=== PATIENT | male | born 1950 ===

== ENCOUNTER → 2024-03-03 17:07 | Day surgery (SDC) | payer MEDICARE, SELFPAY ==
[2024-03-03] VITALS (7 sets, daily range): BP systolic 92–143; BP diastolic 47–71; BMI 24.8
== END ==
LOC: SDS 17:07
PROVIDERS: ADMITTING PHYSICIAN Internal Medicine Gastroenterology; FAMILY PHYSICIAN Family Medicine
DX: R93.2 Abnormal findings on diagnostic imaging of liver and biliary tract (principal); K80.50 Calculus of bile duct without cholangitis or cholecystitis without obstruction; K83.8 Other specified diseases of biliary tract; R74.8 Abnormal levels of other serum enzymes
CPT/HCPCS: 43277; 43264; 74330; 76000; C1726; C1769